=== PATIENT | male | born 1975 | race Caucasian/White ===

== ENCOUNTER 2024-07-25 15:28 | Outpatient (OUT) | payer OTHER, SELFPAY ==
--- NOTE | 2024-07-25 15:35 | US_ITS ---
The [address] [address] Patient Name: TAMMIE LUCAS MRN: [id number] date: 1975 Sex: M Assigned Patient Location: US Current Patient Location: US Accession/Order Number: [id number] Exam Date: 07/25/2024 15:40 Report Date: 07/26/2024 05:47 At the request of: JUAN DANIEL MALIK Procedure: US arterial duplex UE LT EXAMINATION: US arterial duplex UE LT HISTORY: Swelling Mass Upper Limb COMPARISON: No relevant comparison available. TECHNIQUE: Color duplex Doppler ultrasound evaluation analysis was performed in the usual manner. FINDINGS: WAVE FORM: Normal triphasic waveform throughout the lower extremity. VESSEL LUMEN: No significant narrowing or atherosclerotic disease. FLOW VELOCITY: No significantly increased or decreased flow velocity. OTHER: Isoechoic to slightly hyperechoic 1.6 x 1.2 x 0.5 cm structure within the subcutaneous fats, nearly isoechoic to the fat. US/US arterial duplex UE LT IMPRESSION: 1. Normal arterial flow within the left upper extremity. 2. Palpable lump is most suggestive of a subcutaneous lipoma. Consider ultrasound-guided tissue sampling. Electronically authenticated by: ATIYA DAVIS Date: 07/26/2024 05:47
--- NOTE | 2024-07-25 15:35 | US_ITS ---
The [address] [address] Patient Name: TAMMIE LUCAS MRN: [id number] date: 1975 Sex: M Assigned Patient Location: Current Patient Location: Accession/Order Number: [id number] Exam Date: 07/25/2024 15:40 Report Date: 07/26/2024 05:43 At the request of: JUAN DANIEL MALIK Procedure: US venous doppler UE LT EXAMINATION: US venous doppler UE LT HISTORY: Swelling Mass Upper Limb COMPARISON: No relevant comparison available. FINDINGS: REGION: Right upper extremity THROMBI: None. COMPRESSIBILITY: Normal compressibility. FLOW: Normal waveform and antegrade flow between 5 and 20 cm/s. OTHER: None. US/US venous doppler UE LT IMPRESSION: 1. No deep vein thrombus within the right upper extremity. Electronically authenticated by: ATIYA DAVIS Date: 07/26/2024 05:43
== END 2024-07-25 15:29 | disposition home or self-care (01) ==
LOC: US 15:30
PROVIDERS: PCP Family Medicine; Visit Provider Family Medicine
DX: R22.32 Localized swelling, mass and lump, left upper limb (principal)
CPT/HCPCS: 93931; 93971